=== PATIENT | female | born 1970 | race Hispanic/Latino ===

== ENCOUNTER 2019-03-15 17:49 | Emergency (ER) | payer OTHER ==
[2019-03-15] MEDS ORDERED: FAMOTIDINE/PF 20 MG/2 ML VIAL IV ONE (17:57)
[2019-03-15] MEDS ORDERED: ONDANSETRON HCL 4 MG/2 ML VIAL ONE (17:57)
[2019-03-15] MEDS ORDERED: KETOROLAC TROMETHAMINE 15MG/ML ONE (17:58)
[2019-03-15 18:01] LABS: BASOPHILS % (AUTO) 0.4 % (0.0-5.0); EOSINOPHILS % (AUTO) 0.1 % (0.0-8.0); HEMATOCRIT 39.8 % (36-48); LYMPHOCYTES % (AUTO) 11.7 % (21.0-51.0); MEAN CORPUSCULAR HGB CONC 33.1 g/dL (32.0-36.0); MEAN CORPUSCULAR VOLUME 87.6 fL (79-99); MONOCYTES % (AUTO) 2.2 % (3.0-13.0); NEUTROPHILS % (AUTO) 85.6 % (40.0-77.0); NUCLEATED RED BLOOD CELLS 0.1 % (0.0-0.19); PLATELET COUNT (AUTO) 330 K/uL (130-400); RED BLOOD CELL COUNT(AUTO) 4.55 MIL/uL (4.00-5.50); RED CELL DISTRIBUTION WIDTH 13.3 % (11.0-15.5); WHITE BLOOD COUNT (AUTO) 13.1 K/uL (4.8-10.8)
[2019-03-15] MEDS ORDERED: SODIUM CHLORIDE 0.9% 1000ML 1,000 ML IV ONE (18:13)
[2019-03-15 18:15] LABS: INR 0.95 (0.85-1.15); PARTIAL THROMBOPLASTIN TIME 25.7 SEC (26.3-35.5)
[2019-03-15 18:19] LABS: CREATININE 0.8 mg/dL (0.5-1.5); POTASSIUM 3.8 mmol/L (3.5-5.1)
[2019-03-15 18:23] LABS: ALBUMIN 4.3 g/dL (3.5-5.0); BILIRUBIN,TOTAL 0.3 mg/dL (0.2-1.0); TOTAL PROTEIN, SERUM 8.8 g/dL (6.0-8.3)
[2019-03-15] MEDS ORDERED: TAMSULOSIN HCL 0.4 MG CAP.ER.24H ONE (19:02)
[2019-03-15] MEDS ORDERED: TRAMADOL HCL 50 MG TABLET ONE ×2 (19:03→20:27)
[2019-03-15 19:12] LABS: APPEARANCE,URINE CLOUDY (CLEAR); BILIRUBIN,URINE SMALL (NEGATIVE); COLOR,URINE YELLOW (YELLOW); GLUCOSE, URINE (UA) NEGATIVE (NEGATIVE); KETONES,URINE NEGATIVE (NEGATIVE); LEUKOCYTE ESTERASE ,URINE TRACE (NEGATIVE); NITRATE,URINE NEGATIVE (NEGATIVE); OCCULT BLOOD,URINE LARGE (NEGATIVE); PH,URINE 5.5 (5.0-8.0); PROTEIN,URINE 100 mg/dL (NEGATIVE); UROBILINOGEN,URINE 0.2 mg/dL (0.2-1.0)
[2019-03-15 19:24] LABS: BACTERIA,URINE Many /HPF (None Seen)
[2019-03-15 19:25] LABS: MUCUS,URINE Few LPF (None Seen); RBC,URINE >100 /HPF (0-1)
[2019-03-15] MEDS ORDERED: CEFTRIAXONE SODIUM 1 GM ONE (20:16)
== END 2019-03-15 20:40 | disposition home or self-care (01) ==
LOC: EDH 17:49
DX: N39.0 Urinary tract infection, site not specified (principal); N20.1 Calculus of ureter; R42 Dizziness and giddiness; Z87.442 Personal history of urinary calculi; Z90.710 Acquired absence of both cervix and uterus; Z88.5 Allergy status to narcotic agent; Z91.041 Radiographic dye allergy status
CPT/HCPCS: 36415; 71045; 74176; 80053; 81001; 82150; 82550; 83690; 84484; 85025; 85610; 85730; 87088; 93005; 96361; 96374; 96375; 99285; J0696; J1885; J2405; J3490; J7030

== ENCOUNTER → 2023-09-14 | Outpatient (CLI) | payer MEDICAID ==
[2023-09-14 16:31] LABS: CREATININE 0.6 mg/dL (0.5-1.5); POTASSIUM 4.1 mmol/L (3.5-5.1)
== END | disposition home or self-care (01) ==
LOC: LAB 15:52
PROVIDERS: ATTEND Student in an Organized Health Care Education/Training Program
DX: I25.10 Atherosclerotic heart disease of native coronary artery without angina pectoris (principal)
CPT/HCPCS: 36415; 80048

== ENCOUNTER → 2023-10-04 | Outpatient (CLI) | payer MEDICAID | END | disposition home or self-care (01) | LOC: SHCH 08:20 | PROVIDERS: ATTEND Student in an Organized Health Care Education/Training Program | DX: I25.10 Atherosclerotic heart disease of native coronary artery without angina pectoris (principal) | CPT/HCPCS: 93306 ==

== ENCOUNTER → 2023-11-03 | Outpatient (CLI) | payer MEDICAID, OTHER ==
[~2023-11-03] MED LIST: DiphenhydrAMINE HCL 50 MG/ML VIAL ONE; IOHEXOL 350 MG/ML 100ML INFUS..BTL IV ONE; SOLU-MEDROL 125MG VIAL ONE
== END | disposition home or self-care (01) ==
LOC: RAH 07:06
PROVIDERS: ATTEND Student in an Organized Health Care Education/Training Program
DX: R07.89 Other chest pain (principal)
CPT/HCPCS: 75574; J1200; J2930; Q9967